=== PATIENT | female | born 1995 | race Caucasian/White ===

== ENCOUNTER 2021-03-19 22:52 | Emergency (ER) | payer BC, SELFPAY ==
[2021-03-19 22:55] VITALS: BP 160/115; PULSE 95; RESP 22; TEMP 36.9; O2SAT 100; BMI 33.5
[2021-03-19 23:18] LABS: Microscopic, Urine URINE MICROSCOPIC (MICROSCOPIC)
[2021-03-19 23:20] LABS: Bilirubin,Urine Negative (Negative); Blood, Urine 2+ (Negative); Color,Urine YELLOW (Yellow); Glucose,Urine (UA) Negative (Negative); Ketones,Urine Negative (Negative); Leukocyte Esterase,Urine TRACE (Negative); Nitrate,Urine Negative (Negative); PH,Urine 6.5 (5.0-8.5); Protein,Urine Negative (Negative); Urobilinogen,Urine 0.2 EU/dl (0.2)
[2021-03-19 23:27] LABS: Appearance,Urine Slightly Cloudy (Clear); Bacteria,Urine 1+ /lpf; Mucus,Urine 1+ /lpf
[2021-03-19 23:28] LABS: Urine Pregnancy, HCG Qual. Negative (Negative)
--- NOTE | 2021-03-19 23:31 | CT_ITS ---
PROCEDURE INFORMATION: Exam: CT Abdomen And Pelvis Without Contrast Exam date and time: 03/19/21 11:31 PM Age: 25 years old Clinical indication: Abdominal pain; Right; Patient HX: RT flank pain; Additional info: Nephrolithiasis TECHNIQUE: Imaging protocol: Computed tomography of the abdomen and pelvis without contrast. Radiation optimization: All CT scans at this facility use at least one of these dose optimization techniques: automated exposure control; mA and/or kV adjustment per patient size (includes targeted exams where dose is matched to clinical indication); or iterative reconstruction. COMPARISON: No relevant prior studies available. FINDINGS: Tubes, catheters and devices: None noted. Lungs: Lung bases appear clear. Heart: No significant coronary calcifications. No cardiomegaly. No significant pericardial effusion. Liver: Normal. No mass. Gallbladder and bile ducts: Normal. No calcified stones. No ductal dilation. Pancreas: Normal. No ductal dilation. Spleen: Normal. No splenomegaly. Adrenal glands: Normal. No mass. Kidneys and ureters: Distal right ureteral stone 4 mm high with mild right hydronephrosis and hydroureter. Tiny nonobstructive left upper pole caliceal stone. Stomach and bowel: Unremarkable. No obstruction. No mucosal thickening. Appendix: No evidence of appendicitis. Intraperitoneal space: Unremarkable. No free air. No significant fluid collection. Retroperitoneal space: No significant retroperitoneal inflammatory changes are noted. Vasculature: Unremarkable. No abdominal aortic aneurysm. Lymph nodes: Unremarkable. No enlarged lymph nodes. Urinary bladder: Unremarkable as visualized. Reproductive: IUD in place. Bones/joints: Unremarkable. No acute fracture. Soft tissues: Unremarkable. IMPRESSION: 1. Right UVJ stone 4 mm with mild right hydronephrosis and hydroureter. 2. IUD [address] place.
[2021-03-19 23:39] LABS: Basophils # 0.2 K/mm3 (0-0.2); Eosinophils # 0.2 K/mm3 (0.0-0.4); Eosinophils % 1.4 % (0.1-12.0); Hematocrit 44.8 % (37.0-47.0); Hemoglobin 15.4 g/dL (12.2-16.2); Lymphocytes # 4.4 K/mm3 (0.7-4.5); Lymphocytes % 28.6 % (10-50); Mean Corpuscular HGB Conc 34.4 g/dL (31.8-35.4); Mean Corpuscular Hemoglobin 28.5 pg (27.0-31.2); Mean Corpuscular Volume 82.7 fl (81-99); Mean Platelet Volume 7.1 fl (7.4-10.4); Monocytes # 1.1 K/mm3 (0.1-1.0); Monocytes % 7.1 % (1.7-9.3); Neutrophils # 9.5 K/mm3 (1.8-7.8); Neutrophils % 61.9 % (37.0-80.0); Platelet Count 499 K/mm3 (142-424); Red Blood Count 5.42 M/mm3 (4.20-5.40); Red Cell Distribution Width 12.4 % (11.5-17.5); White Blood Count 15.4 K/mm3 (4.8-10.8)
[2021-03-19 23:40] LABS: Chloride 102 mmol/L (98-107); Potassium 3.6 mmoL/L (3.5-5.1); Sodium 142 mmol/L (136-145)
[2021-03-19 23:42] LABS: MANUAL DIFFERENTIAL MANUAL DIFFERENTIAL (MANUAL DIFF)
[2021-03-19 23:43] LABS: Alanine Aminotransferase 29 U/L (12-78); Albumin Level 4.8 g/dl (3.5-5.0); Albumin/Globulin Ratio 1.3 (1.1-1.8); Alkaline Phosphatase 91 U/L (38-126); Anion Gap 16.6 mEq/L (5-15); Aspartate Amino Transferase 27 U/L (14-36); Bilirubin,Total 0.3 mg/dl (0.2-1.3); Blood Urea Nitrogen 11 mg/dl (7-17); Carbon Dioxide 27 mmol/L (22.0-30.0); Creatinine Clearance Estimated 204 mL/min (50-200); Estimated Glomerular Filt Rate 124 ml/min (>60); GFR (African American) 150 ML/MIN (>60); Globulin 3.6 g/dL (1.3-3.2); Total Protein,Serum 8.4 g/dl (6.3-8.2)
[2021-03-19 23:44] LABS: Calcium 9.7 mg/dl (8.4-10.2); Glucose 102 mg/dl (74-100)
[2021-03-20 00:04] VITALS: BP 137/86; PULSE 99; O2SAT 100
--- NOTE | 2021-03-20 00:25 | [facility].EDABDPAI ---
ED Disposition Clinical Impression: Nephrolithiasis Disposition: Home, Self-Care Condition on Discharge: Good Instructions: DI for Acute Abdominal Pain Additional Instructions: Take ibuprofen as needed for pain relief Please take medication as prescribed If symptoms persist or worsen, may return to the ED for further evaluation Patient drink plenty of fluids Prescriptions: Tamsulosin HCl 0.4 mg PO DAILY 3 Days #3 cap Prescription Printed Ondansetron [Zofran 4mg ODT] 4 mg PO Q6H PRN #8 tab PRN Reason: nausea Prescription Printed Referrals: WM Negro Sanchez [Primary Care Provider] - - Critical Care Critical Care Time: No Attestation: On 03/19/21, the high probability of a clinically significant, sudden or life threatening deterioration of the following system(s) required my full and direct attention, intervention and personal management. The time I documented below is in addition to time spent performing reported procedures but includes the following listed in this critical care notation. Medical Decision Making - Medical Records Medical records reviewed: Yes: I reviewed the patient's medical records. - Beau Inquiry Pt receiving controlled substance: No Vital Signs: 03/19/21 22:55 03/20/21 00:04 Temperature 98.5 F Temperature Source Oral Pulse Rate 99 H Pulse Rate [Left] 95 H Respiratory Rate 22 Blood Pressure 137/86 Blood Pressure [Right Arm] 160/115 H Blood Pressure Mean [Right Arm] 130 02 Sat by Pulse Oximetry 100 100 Oxygen Delivery Method Room Air - Lab Data Lab Results 03/19/21 23:15: Urine Color Yellow, Urine Appearance Slightly cloudy, Urine pH 6.5, Ur Specific [place] 1.020, Urine Protein Negative, Urine Glucose (UA) Negative, Urine Ketones Negative, Urine Blood 2+, Urine Nitrate Negative, Urine Bilirubin Negative, Urine Urobilinogen 0.2, Ur Leukocyte Esterase Trace, Urine RBC 5-10, Urine WBC 3-5, Ur Squamous Epith Cells 3-5, Urine Bacteria 1+, Urine Mucus 1+ 03/19/21 23:15: Urine HCG, Qual Negative 03/19/21 23:20: WBC 15.4 H, RBC 5.42 H, Hgb 15.4, Hct 44.8, MCV 82.7, MCH 28.5, MCHC 34.4, RDW 12.4, Plt Count 499 H, MPV 7.1 L, Neut % (Auto) 61.9, Lymph % (Auto) 28.6, [place] % (Auto) 7.1, Eos % (Auto) 1.4, Baso % (Auto) 1.0, Neut # (Auto) 9.5 H, Lymph # (Auto) 4.4, [place] # (Auto) 1.1 H, Eos # (Auto) 0.2, Baso # (Auto) 0.2 03/19/21 23:20: Sodium 142, Potassium 3.6, Chloride 102, Carbon Dioxide 27, Anion Gap 16.6 H, BUN 11, Creatinine 0.60, Estimated Creat Clear 204, Estimated GFR 124, Est GFR ( Amer) 150, Glucose 102 H, Calcium 9.7, Total Bilirubin 0.3, AST 27, ALT 29, Alkaline Phosphatase 91, Total Protein 8.4 H, Albumin 4.8, Globulin 3.6 H, Albumin/Globulin Ratio 1.3 Result diagrams: 03/19/21 23:20 03/19/21 23:20 Orders (Tests/Meds): ED MEDICATIONS Generic Name Dose Route Start Last Admin Trade Name Freq PRN Reason Stop Dose Admin Lactated Ringer's 1,640 mls @ 820 mls/hr 03/19/21 23:31 03/19/21 23:44 Lactated Ringer's 1000 Ml Bag 30 ml/kg infuse over 2 hr (1640 ml) 03/20/21 01:30 820 mls/hr IV Administration .Q2H ONE Discontinued Medications Generic Name Dose Route Start Last Admin Trade Name Freq PRN Reason Stop Dose Admin Ketorolac Tromethamine 30 mg 03/19/21 23:31 03/19/21 23:44 Ketorolac 30mg/Ml Vial IV 03/19/21 23:32 30 mg ONCE ONE Administration ORDERS Category Date Time Status Complete Blood Count Auto Diff Stat Lab 03/19/21 23:20 Results Medical Decision Narrative: Upon presentation, patient is hemodynamically stable and nontoxic, but uncomfortable appearing. Patient presents with right-sided flank pain that radiates to the front of her abdomen. Differential diagnosis includes but not limited to nephrolithiasis, ruptured ovarian cyst, appendicitis. Patient is given 30 mg IV Toradol and 1 L bolus for symptomatic management. Labs including CBC, CMP were obtained along with an CT of the abdomen without contras
[2021-03-20 00:30] VITALS: BP 142/79; PULSE 76; RESP 18; O2SAT 99
[2021-03-20 00:46] LABS: Eosinophils % 1 % (0-3); Lymphocytes % 35 % (10-50); Monocytes % 1 % (2-9); Neutrophils % 62 % (42-76); Platelet Estimate Normal; Total Cells Counted 100
[2021-03-20 00:47] LABS: Stomatocytes 1+
[2021-03-20 01:13] VITALS: BP 152/95; PULSE 93; RESP 16; TEMP 36.8; O2SAT 98
== END 2021-03-20 01:17 | disposition home or self-care (01) ==
PROVIDERS: Emergency Provider Emergency Medicine; PCP Family Medicine
DX: N20.0 Calculus of kidney (principal); E11.9 Type 2 diabetes mellitus without complications
CPT/HCPCS: 74176; 80053; 81001; 81025; 85007; 85025; 96365; 96375; 99283

== ENCOUNTER → 2021-08-22 16:19 | Outpatient (CLI) | payer BC, SELFPAY ==
[2021-08-22 16:23] LABS: Microscopic, Urine URINE MICROSCOPIC (MICROSCOPIC)
[2021-08-22 16:46] LABS: Basophils # 0.2 K/mm3 (0-0.2); Basophils % 1.8 % (0.1-2.0); Eosinophils # 0.4 K/mm3 (0.0-0.4); Eosinophils % 2.6 % (0.1-12.0); Hematocrit 44.9 % (37.0-47.0); Hemoglobin 15.5 g/dL (12.2-16.2); Lymphocytes # 3.2 K/mm3 (0.7-4.5); Lymphocytes % 24.3 % (10-50); Mean Corpuscular HGB Conc 34.5 g/dL (31.8-35.4); Mean Corpuscular Hemoglobin 28.6 pg (27.0-31.2); Mean Platelet Volume 7.5 fl (7.4-10.4); Monocytes # 0.6 K/mm3 (0.1-1.0); Monocytes % 4.8 % (1.7-9.3); Neutrophils # 8.7 K/mm3 (1.8-7.8); Neutrophils % 66.5 % (37.0-80.0); Platelet Count 508 K/mm3 (142-424); Red Blood Count 5.42 M/mm3 (4.20-5.40); Red Cell Distribution Width 12.8 % (11.5-17.5); White Blood Count 13.1 K/mm3 (4.8-10.8)
[2021-08-22 16:57] LABS: Hemoglobin A1C 5.3 % (4.0-6.0)
[2021-08-22 17:01] LABS: Chloride 102 mmol/L (98-107); Sodium 140 mmol/L (136-145)
[2021-08-22 17:02] LABS: HCG Qualitative, Serum Negative (Negative)
[2021-08-22 17:03] LABS: Alanine Aminotransferase 19 U/L (12-78); Albumin Level 4.6 g/dl (3.5-5.0); Albumin/Globulin Ratio 1.6 (1.1-1.8); Alkaline Phosphatase 81 U/L (38-126); Aspartate Amino Transferase 24 U/L (14-36); Blood Urea Nitrogen 11 mg/dl (7-17); Carbon Dioxide 31 mmol/L (22.0-30.0); Estimated Glomerular Filt Rate 123 ml/min (>60); GFR (African American) 149 ML/MIN (>60); Globulin 2.8 g/dL (1.3-3.2); Total Protein,Serum 7.4 g/dl (6.3-8.2)
[2021-08-22 17:04] LABS: Calcium 9.4 mg/dl (8.4-10.2); Chol/HDL Ratio 4.7 (1-3.5); Cholesterol 205 mg/dl (140-200); Glucose 100 mg/dl (74-100); HDL Cholesterol 44 mg/dl (40-60); Triglycerides 308 mg/dl (30-150); VLDL Cholesterol 62 mg/dL (0-40)
[2021-08-22 17:12] LABS: Bilirubin,Total 0.1 mg/dl (0.2-1.3)
[2021-08-22 17:15] LABS: Direct LDL Cholesterol 127.35 mg/dL (100-129)
[2021-08-22 17:21] LABS: T4 (Thyroxine) 10.2 ug/dl (5.53-11.0)
[2021-08-22 17:35] LABS: Thyroid Stimulating Hormone 1.16 uIU/mL (0.465-4.68)
[2021-08-22 19:35] LABS: Vitamin B12 465 pg/mL (239-931)
[2021-08-22 20:58] LABS: Appearance,Urine CLEAR (Clear); Bilirubin,Urine Negative (Negative); Blood, Urine Negative (Negative); Color,Urine YELLOW (Yellow); Glucose,Urine (UA) Negative (Negative); Ketones,Urine Negative (Negative); Leukocyte Esterase,Urine Negative (Negative); Nitrate,Urine Negative (Negative); Protein,Urine Negative (Negative); Specific Gravity, Urine 1.025 (1.005-1.030); Urobilinogen,Urine 0.2 EU/dl (0.2)
[2021-08-22 21:38] LABS: Amorphous Sediment,Urine Trace /lpf
== END ==
PROVIDERS: Visit Provider Internal Medicine
DX: E28.2 Polycystic ovarian syndrome (principal); R53.83 Other fatigue; Z79.899 Other long term (current) drug therapy
CPT/HCPCS: 36415; 80053; 80061; 81001; 82607; 83036; 84436; 84443; 84703; 85025